=== PATIENT | female | born 1990 | race African-American/Black ===

== ENCOUNTER 2023-12-30 19:52 | Emergency (ER) | payer OTHER ==
[~2023-12-30] VITALS: Ht 167.6 cm; Wt 86.4 kg
[~2023-12-30 19:52] MED LIST: NOCURR
[2023-12-30 20:01] VITALS: BP 141/79; PULSE 64; RESP 16; TEMP 98.7; O2SAT 98
[2023-12-30] MEDS: ACETAMINOPHEN 500 MG TABLET PO ONE (21:26)
[2023-12-30] MEDS: IBUPROFEN 600 MG TABLET PO ONE (21:26)
== END 2023-12-30 22:41 | disposition home or self-care (01) ==
LOC: EMS 19:52
DX: S09.90XA Unspecified injury of head, initial encounter (principal); M54.6 Pain in thoracic spine; F17.210 Nicotine dependence, cigarettes, uncomplicated; Z98.890 Other specified postprocedural states; V23.49XA Other motorcycle driver injured in collision with car, pick-up truck or van in traffic accident, initial encounter; Y93.89 Activity, other specified; Y92.410 Unspecified street and highway as the place of occurrence of the external cause; Y99.8 Other external cause status
CPT/HCPCS: 70450; 72125; 99284